=== PATIENT | male | born 2005 | race African-American/Black ===

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

== ENCOUNTER → 2024-01-09 | Outpatient (CLI) | payer OTHER ==
--- NOTE | 2024-01-21 20:49 | EM ---
EVENT MONITOR The patient was monitored between the and December. The rhythm strip revealed a sinus mechanism. The average rate 75 beats per minute, minimum 50, maximum 139 beats per minute. Ventricular ectopic activity was present in the form of rare single PVCs with a burden of less than 1%. No atrial fibrillation was noted. MMKALI / [place]: [id number] /
== END | disposition home or self-care (01) ==
LOC: RADECHMAIN 07:07
PROVIDERS: ATTEND Internal Medicine
DX: I49.3 Ventricular premature depolarization (principal); R00.2 Palpitations
CPT/HCPCS: 93270